=== PATIENT | male | born 1965 | race Caucasian/White ===

== ENCOUNTER 2016-10-15 11:56 | Emergency (ER) | payer SELFPAY ==
[2016-10-15 11:58] LABS: BASOPHILS 0.1 %; BASOPHILS ABSOLUTE 0.02 10/3/uL (0.0-0.16); EOSINOPHILS 0.1 %; EOSINOPHILS ABSOLUTE 0.02 10/3/uL (0.0-0.53); ER CBC TAT 0 Hrs 03 Mins; HEMATOCRIT 49.9 % (40.0-51.0); HEMOGLOBIN 16.9 g/dL (13.6-17.8); IMMATURE GRANULOCYTES 0.3 %; IMMATURE GRANULOCYTES ABSOLUTE 0.05 10/3/uL (0.0-0.11); LYMPHOCYTES 12.5 %; LYMPHOCYTES ABSOLUTE 1.89 10/3/uL (0.67-4.30); MEAN CORPUS HGB CONC 33.9 g/dL (32.0-36.0); MEAN CORPUSCULAR HEMOGLOB 30.8 pg (26.0-34.0); MEAN CORPUSCULAR VOLUME 91.1 fL (80-100); MEAN PLATELET VOLUME 10.8 fL (9.2-13.0); MONOCYTES 8.7 %; MONOCYTES ABSOLUTE 1.31 10/3/uL (0.21-1.20); NEUTROPHILS 78.3 %; NEUTROPHILS ABSOLUTE 11.82 10/3/uL (2.02-8.40); PLATELET COUNT 262 10/3/uL (150-400); RBC DISTRIBUTION WIDTH 13.3 % (12.0-16.0); RED CELL COUNT 5.48 10/6/uL (4.7-6.1); WHITE BLOOD CELLS 15.1 10/3/uL (4.5-10.5)
[2016-10-15 11:59] LABS: MANUAL DIFF NO %
[2016-10-15 12:13] LABS: ALBUMIN 4.3 G/DL (3.5-5.0); ALKALINE PHOSPHATASE 76 U/L (45-117); BUN (BLOOD UREA NITROGEN) 15 MG/DL (6-23); CALCIUM, SERUM 9.5 MG/DL (8.5-10.4); CHLORIDE, SERUM 111 MMOL/L (96-112); CO2 (CARBON DIOXIDE) 25 MMOL/L (24-34); CREATININE 1.33 MG/DL (0.70-1.30); DIRECT BILIRUBIN 0.2 MG/DL (0.0-0.4); GFR AFRICAN AMERICAN 72 ML/MIN (>=60); GFR NON AFRICAN AMERICAN 62 ML/MIN (>=60); GLOBULIN 4.5 G/DL (2.5-4.1); GLUCOSE, SERUM 117 MG/DL (60-99); INDIRECT BILIRUBIN(NOT ORDER) 1.2 MG/DL (0.1-0.9); POTASSIUM, SERUM 3.9 MMOL/L (3.5-5.3); SGOT(AST) 42 U/L (5-40); SGPT(ALT) 43 U/L (5-65); SODIUM, SERUM 142 MMOL/L (135-148); TOTAL BILIRUBIN 1.4 MG/DL (0-1.2); TOTAL PROTEIN 8.8 G/DL (6.0-8.5)
[2016-10-15 12:33] LABS: LACTATE 1.5 MMOL/L (0.3-2.4)
[2016-10-15 12:45] LABS: ASCORBIC ACID (UR NOT ORDER) NEG (NEG); BILIRUBIN, URINE NEGATIVE (NEG); ER URINALYSIS TAT 0 Hrs 13 Mins; KETONE, URINE 20 MG/DL (NEG); LEUKOCYTE ESTERASE(NOT OR NEG (NEG); NITRITE (URINE) NEG (NEG); WBC (NOT ORDERED) (RFLEX) 2 (0-5)
== END 2016-10-15 16:35 | disposition home or self-care (01) ==
LOC: ER 11:56
PROVIDERS: Emergency Medicine
DX: N39.0 Urinary tract infection, site not specified (principal); N13.2 Hydronephrosis with renal and ureteral calculous obstruction; I10 Essential (primary) hypertension; F17.200 Nicotine dependence, unspecified, uncomplicated; Z90.49 Acquired absence of other specified parts of digestive tract; Z90.89 Acquired absence of other organs; Z88.0 Allergy status to penicillin
CPT/HCPCS: 74176; 76705; 80053; 81001; 82248; 83605; 83690; 83880; 85025; 96374; 96375; 99284; J1170; J2405; J2550

== ENCOUNTER 2016-10-18 23:35 | Observation (INO) | payer SELFPAY ==
--- NOTE | ~2016-10-18 | HP ---
History And Physical [facility] [address] [place]. [address] NAME: PHILLIP GAONA : 69 STATUS : ADM May PAT#: [id number] AGE: 51 ADM/REG DATE : 10/18/16 MR#: [id number] REPORT SERV DATE: 10/19/16 DICTATED BY: NATI TERRY DATE: 10/19/16 REPORT STATUS : Draft TRANSCRIBED BY: MODL DATE: 10/19/16 DATE OF ADMISSION: 10/18/2016 CHIEF COMPLAINT: Right flank pain. HISTORY OF PRESENT ILLNESS: Mr. Gaona is a 51-year-old, who has had intractable right flank pain for several days. He has had two visits to the emergency room. CT scan shows obstructing right mid ureteral stone. He denies fevers, chills, or vomiting. He has had some nausea, pain is always in the right flank. He has not had stones before. I was asked to admit him for definitive treatment as he is failing outpatient management of the stone. PAST MEDICAL HISTORY: Hypertension. ALLERGIES: QUESTION PENICILLIN. MEDICATIONS: Lisinopril, Norvasc, HCTZ. SOCIAL HISTORY: Single, nonsmoker. REVIEW OF SYSTEMS: No left flank pain. No gross hematuria. No dysuria. No fever at home. No chills at home. No chest pain, shortness of breath. No recent trauma. PHYSICAL EXAMINATION: VITAL SIGNS: Temperature upon admission was 98.1, temperature this morning 101.0, heart rate 82, respirations 20, 139/86. GENERAL: Pleasant, ill-appearing 51-year-old, in no acute distress. HEENT: Sclerae anicteric. LUNGS: Clear. HEART: Regular rhythm. CHEST: Clear anteriorly. ABDOMEN: Soft, nontender, nondistended. No palpable mass. No rebound or guarding. No left CVA tenderness. Mild right CVA tenderness. No inguinal hernia. No lower extremity edema. NEURO: He is oriented to person, place, time, and situation. LABORATORY DATA: Voided urine yesterday was negative for blood nitrites or leukocytes. Ketones are present. White blood cell count is 13 this morning. Creatinine 1.84. IMAGING: CT from 10/15/2014 shows an obstructing right proximal ureteral stone. KUB from today shows a right proximal ureteral stone 5 x 4 mm stone within the right upper ureter. IMPRESSION: 1. Right ureteral stone. 2. Fever. History And Physical [address] [place]. [address] NAME: PHILLIP GAONA : 69 STATUS : ADM May PAT#: [id number] AGE: 51 ADM/REG DATE : 10/18/16 MR#: [id number] REPORT SERV DATE: 10/19/16 DICTATED BY: NATI TERRY DATE: 10/19/16 REPORT STATUS : Draft TRANSCRIBED BY: NIEVES DATE: 10/19/16 PLAN: 1. Proceed to the operating for cystoscopy, right retrograde pyelogram, right stent placement. 2. I give him Levaquin now. 3. If there is grossly purulent urine behind the stone, then no attempt will be made to remove the stone. If however the urine behind the stone was not grossly purulent, I will make attempts to laser lithotripsy and fragment removal. He understands, he will have a ureteral stent postop. [facility]/NIEVES Nati Terry M.D. / [id number] CC: Nati Terry M.D.
--- NOTE | ~2016-10-18 | OP ---
Record Of Operation [facility] [address] [place]. [address] NAME: PHILLIP GAONA : 69 STATUS : ADM May PAT#: [id number] AGE: 51 ADM/REG DATE : 10/18/16 MR#: [id number] REPORT SERV DATE: 10/19/16 DICTATED BY: NATI TERRY DATE: 10/19/16 REPORT STATUS : Draft TRANSCRIBED BY: MODL DATE: 10/19/16 DATE OF PROCEDURE: 10/19/2016 PREOPERATIVE DIAGNOSIS: Right ureteral stone. POSTOPERATIVE DIAGNOSIS: Right ureteral stone. PROCEDURE PERFORMED: 1. Right ureteroscopy with laser lithotripsy and basket stone fragment extraction. 2. Cystoscopy, retrograde pyelogram, and right ureteral stent placement. SURGEON: Nati Terry M.D. ANESTHESIA: General. COMPLICATIONS: Extravasation from the site of stone impaction on the final retrograde pyelogram. DRAINS: Right double-J ureter stent. SPECIMENS: Right ureteral stone fragments. INDICATIONS: Mr. Gaona is a 51-year-old with an impacted right upper ureteral stone. He has failed outpatient trial of passage. He was admitted for pain control last night. TECHNIQUE: Informed consent was obtained. Mr. Gaona was brought to the operating room and was given Levaquin preop. General anesthesia was administered via laryngeal mask airway. The penis and scrotum were prepped and draped in the low lithotomy position. Rigid cystoscopy was performed. The urethra was normal. Prostate was nonobstructive. No stone or tumor in the bladder. Clear efflux on the left and sluggish efflux on the right. Right retrograde pyelogram was performed. There was obstructing calcified stone 4 mm x 5 mm in the right proximal ureter. With some difficulty, a 0.038 straight Glidewire was passed beyond the stone. I removed the cystoscope. I passed an 11-Bengali ureteral access sheath up to the level of the right mid ureter. Flexible ureteroscope was advanced over the wire up to the level of the stone. The stone was impacted in the ureteral wall at this area. A 200 micron holmium laser fiber was passed through the working channel and laser lithotripsy was performed. The stone was fragmented into pieces 2 mm in size or smaller. I basket extracted three largest fragments from the ureter with a NGage basket. A re-ureteroscope was advanced in the renal pelvis. There was copious bloody urine and some small fragments. The 1 mm stone in the lower pole was actually a Angel's plaque and was not basketed. Retrograde pyelogram was repeated through the ureteroscope at this point. There was a slight lateral extravasation at the site of stone impaction. I left a wire in the kidney and under fluoroscopic guidance placed a 26 cm 6-Bengali Contour right ureter stent. Given the extravasation, I removed the Record Of Operation [address] [address] NAME: PHILLIP GAONA : 69 STATUS : ADM May PAT#: [id number] AGE: 51 ADM/REG DATE : 10/18/16 MR#: [id number] REPORT SERV DATE: 10/19/16 DICTATED BY: NATI TERRY DATE: 10/19/16 REPORT STATUS : Draft TRANSCRIBED BY: NIEVES DATE: 10/19/16 dangling string. He was awakened and taken to the recovery room in satisfactory condition. He will keep this ureteral stent for 10 days postop. He will not need a KUB prior to stent removal. [facility]/NIEVES Nati Terry M.D. / [id number] CC: Nati Terry M.D.
[2016-10-18 22:47] LABS: BASOPHILS 0.3 %; BASOPHILS ABSOLUTE 0.04 10/3/uL (0.0-0.16); EOSINOPHILS 1.5 %; EOSINOPHILS ABSOLUTE 0.24 10/3/uL (0.0-0.53); ER CBC TAT 0 Hrs 03 Mins; HEMATOCRIT 49.2 % (40.0-51.0); HEMOGLOBIN 17.5 g/dL (13.6-17.8); IMMATURE GRANULOCYTES 0.6 %; LYMPHOCYTES 20.5 %; LYMPHOCYTES ABSOLUTE 3.25 10/3/uL (0.67-4.30); MEAN CORPUSCULAR HEMOGLOB 31.3 pg (26.0-34.0); MONOCYTES 8.9 %; MONOCYTES ABSOLUTE 1.41 10/3/uL (0.21-1.20); NEUTROPHILS 68.2 %; NEUTROPHILS ABSOLUTE 10.82 10/3/uL (2.02-8.40); PLATELET COUNT 301 10/3/uL (150-400); RBC DISTRIBUTION WIDTH 12.6 % (12.0-16.0); RED CELL COUNT 5.59 10/6/uL (4.7-6.1); WHITE BLOOD CELLS 15.9 10/3/uL (4.5-10.5)
[2016-10-18 22:48] LABS: MANUAL DIFF NO %; MEAN CORPUS HGB CONC 35.6 g/dL (32.0-36.0)
[2016-10-18 23:03] LABS: A/G RATIO 0.8 (0.7-1.9); ALBUMIN 3.7 G/DL (3.5-5.0); ALKALINE PHOSPHATASE 70 U/L (45-117); BUN (BLOOD UREA NITROGEN) 26 MG/DL (6-23); CALCIUM, SERUM 10.3 MG/DL (8.5-10.4); CHLORIDE, SERUM 101 MMOL/L (96-112); CO2 (CARBON DIOXIDE) 25 MMOL/L (24-34); CREATININE 1.91 MG/DL (0.70-1.30); GFR AFRICAN AMERICAN 47 ML/MIN (>=60); GFR NON AFRICAN AMERICAN 40 ML/MIN (>=60); GLOBULIN 4.8 G/DL (2.5-4.1); GLUCOSE, SERUM 118 MG/DL (60-99); POTASSIUM, SERUM 3.4 MMOL/L (3.5-5.3); SGOT(AST) 32 U/L (5-40); SGPT(ALT) 33 U/L (5-65); SODIUM, SERUM 137 MMOL/L (135-148); TOTAL BILIRUBIN 1.3 MG/DL (0-1.2); TOTAL PROTEIN 8.5 G/DL (6.0-8.5)
[2016-10-18 23:16] LABS: BAND NEUTROPHILS 2 %; BASOPHILS 2 %; BASOPHILS ABSOLUTE (CALC) 0.32 10/3/uL (0.0-0.16); ER DIFF TAT 0 Hrs 32 Mins; LYMPHOCYTES 20 %; LYMPHOCYTES ABSOLUTE (CALC) 3.18 10/3/uL (0.67-4.30); MONOCYTES 7 %; MONOCYTES ABSOLUTE (CALC) 1.11 10/3/uL (0.21-1.20); NEUTROPHILS ABSOLUTE (CALC) 11.29 10/3/uL (2.02-8.40); SEGMENTED NEUTROPHIL (0) 69 %; TOTAL NUCLEATED CELLS 100
[2016-10-18 23:17] LABS: PLATELET ESTIMATE ADQ (ADEQUATE); RBC MORPHOLOGY NORM (NORMAL); TOXIC GRANULATION SLT; VACUOLATED NEUTROPHILES FEW
[2016-10-19] MEDS ORDERED: PRIN20 PO (00:05)
[2016-10-19] MEDS ORDERED: NORV5 PO (00:06)
[2016-10-19] MEDS ORDERED: HCTZ25B PO (00:06)
[2016-10-19 00:07] LABS: ASCORBIC ACID (UR NOT ORDER) NEG (NEG); BILIRUBIN, URINE NEGATIVE (NEG); ER URINALYSIS TAT 0 Hrs 00 Mins; KETONE, URINE TRACE MG/DL (NEG); LEUKOCYTE ESTERASE(NOT OR NEG (NEG); NITRITE (URINE) NEG (NEG); WBC (NOT ORDERED) (RFLEX) < 1 (0-5)
[2016-10-19 04:59] LABS: BASOPHILS 0.2 %; BASOPHILS ABSOLUTE 0.03 10/3/uL (0.0-0.16); EOSINOPHILS 1.6 %; EOSINOPHILS ABSOLUTE 0.22 10/3/uL (0.0-0.53); HEMATOCRIT 46.6 % (40.0-51.0); HEMOGLOBIN 15.8 g/dL (13.6-17.8); IMMATURE GRANULOCYTES 0.6 %; IMMATURE GRANULOCYTES ABSOLUTE 0.08 10/3/uL (0.0-0.11); LYMPHOCYTES 20.4 %; LYMPHOCYTES ABSOLUTE 2.75 10/3/uL (0.67-4.30); MEAN CORPUS HGB CONC 33.9 g/dL (32.0-36.0); MEAN CORPUSCULAR HEMOGLOB 30.5 pg (26.0-34.0); MEAN PLATELET VOLUME 10.8 fL (9.2-13.0); MONOCYTES 11.3 %; MONOCYTES ABSOLUTE 1.52 10/3/uL (0.21-1.20); NEUTROPHILS 65.9 %; NEUTROPHILS ABSOLUTE 8.85 10/3/uL (2.02-8.40); PLATELET COUNT 274 10/3/uL (150-400); RED CELL COUNT 5.18 10/6/uL (4.7-6.1); WHITE BLOOD CELLS 13.5 10/3/uL (4.5-10.5)
[2016-10-19 05:01] LABS: MANUAL DIFF NO %
[2016-10-19 05:09] LABS: BUN (BLOOD UREA NITROGEN) 23 MG/DL (6-23); CALCIUM, SERUM 9.3 MG/DL (8.5-10.4); CHLORIDE, SERUM 101 MMOL/L (96-112); CO2 (CARBON DIOXIDE) 30 MMOL/L (24-34); CREATININE 1.84 MG/DL (0.70-1.30); GFR AFRICAN AMERICAN 49 ML/MIN (>=60); GFR NON AFRICAN AMERICAN 42 ML/MIN (>=60); GLUCOSE, SERUM 120 MG/DL (60-99); POTASSIUM, SERUM 3.7 MMOL/L (3.5-5.3); SODIUM, SERUM 136 MMOL/L (135-148)
[2016-10-19] MEDS ORDERED: PCET PO (13:08)
[2016-10-19] MEDS ORDERED: CIP5 PO (13:08)
[2016-10-19] MEDS ORDERED: PYR100B PO (13:09)
[2016-10-19] MEDS ORDERED: FLOMAX4 PO (13:09)
[2016-10-23 18:40] LABS: STONE COMPOSITION TWO DNR (())
== END 2016-10-19 18:33 | disposition home or self-care (01) ==
LOC: ER 23:35 → 4SO 23:59
PROVIDERS: Hospitalist; Nurse Practitioner Acute Care; Urology
PROC: 0TF68ZZ Fragmentation in Right Ureter, Via Natural or Artificial Opening Endoscopic (ICD-10-PCS; principal; 2016-10-18)
PROC: 0T768DZ Dilation of Right Ureter with Intraluminal Device, Via Natural or Artificial Opening Endoscopic (ICD-10-PCS; 2016-10-18)
DX: N20.1 Calculus of ureter (principal); I10 Essential (primary) hypertension; L40.9 Psoriasis, unspecified; J34.2 Deviated nasal septum; F17.200 Nicotine dependence, unspecified, uncomplicated; E66.9 Obesity, unspecified; Z68.30 Body mass index [BMI] 30.0-30.9, adult; Z88.0 Allergy status to penicillin; Z79.899 Other long term (current) drug therapy
CPT/HCPCS: 74000; 74420; 80048; 80053; 81001; 82365; 83690; 85025; 93005; 96374; 96375; 96376; 99285; A9270-GY; C1758; C1769; C1894; C2617; G0378; J1170; J2175; J2250; J2370; J2405; J3010; Q9967